=== PATIENT | male | born 1950 | race Caucasian/White ===

== ENCOUNTER 2017-07-12 10:45 | Outpatient (CLI) | payer BC | END 2017-07-12 10:46 | disposition home or self-care (01) | LOC: BURLAB 10:45 | PROVIDERS: ATTEND Urology | DX: N40.0 Benign prostatic hyperplasia without lower urinary tract symptoms (principal); N52.9 Male erectile dysfunction, unspecified | CPT/HCPCS: 36415; 84153; 84403 ==